=== PATIENT | female | born 1990 | race Caucasian/White ===

== ENCOUNTER 2018-08-27 17:02 | Emergency (ER) | payer BC ==
[2018-08-27 17:10] VITALS: BP 126/65
[2018-08-27] MEDS ORDERED: ONDANSETRON 4 MG TAB.RAPDIS ONE (17:24)
--- NOTE | 2018-08-27 17:36 | ER Document Report ---
ED Medical Screen (RME) - General Chief Complaint: Fall Injury Stated Complaint: FALL/HEAD INJURY Time Seen by Provider: 08/27/18 17:34 Mode of Arrival: Ambulatory Information source: Patient Notes: This is a 28-year-old female with a history of a meningioma, migraine headaches who awoke feeling not well. She states she had some nausea with vomiting and some diarrhea. She did go to work at noon and work till 4 PM. She started to feel worse approximately 4 PM and had a fainting spell. Her brother also works with the patient [employer] and was coming into work and they were talking when the patient fainted. Brother called his sister and the patient did not hit her head. Her predominant complaint at this time is nausea. She was given 8 mg oral Zofran. She does not want any treatment. We will watch her in the triage area for a little bit while they consider being evaluated. TRAVEL OUTSIDE OF THE [place] IN LAST 30 DAYS: No - HPI Onset: Just prior to arrival Onset/Duration: Gradual Quality of pain: No pain Severity: None Pain Level: Denies Associated Symptoms: Diarrhea, Nausea, Vomiting Exacerbated by: Denies Relieved by: Denies Similar symptoms previously: Yes Recently seen / treated by doctor: Yes - Related Data Smoking: Non-smoker Frequency of alcohol use: None Drug Abuse: None Allergies/Adverse Reactions: amoxicillin [From Augmentin] Allergy (Verified 08/27/18 17:04) cefprozil [From Cefzil] Allergy (Verified 08/27/18 17:04) clavulanic acid [From Augmentin] Allergy (Verified 08/27/18 17:04) fentanyl Allergy (Verified 08/27/18 17:04) Past Medical History - General Information source: Patient, Relative - Patient is accompanied by brother - Social History Cigarette use (# per day): No Chew tobacco use (# tins/day): No Frequency of alcohol use: None Drug Abuse: None Lives with: Family Family history: None - Past Medical History Cardiac Medical History: Reports: None Pulmonary Medical History: Reports: None Neurological Medical History: Reports: Hx Migraine, Other - Meningioma Endocrine Medical History: Reports: None Surgical Hx: Negative Review of Systems - Review of Systems Constitutional: denies: Chills, Fever EENT: No symptoms reported Cardiovascular: denies: Chest pain, Palpitations Respiratory: No symptoms reported Gastrointestinal: Diarrhea, Nausea, Vomiting Genitourinary: No symptoms reported Female Genitourinary: No symptoms reported Musculoskeletal: No symptoms reported Skin: No symptoms reported Hematologic/Lymphatic: No symptoms reported Neurological/Psychological: Weakness Physical Exam - Vital signs Vitals: Temp Pulse Resp BP Pulse Ox 98.3 F 112 H 16 126/65 H 99 08/27/18 17:09 08/27/18 17:09 08/27/18 17:08/27/18 17:08/27/18 17:09 Notes: Physical exam: This is a limited exam. Patient essentially does not want full evaluation. GENERAL: HEAD: Atraumatic, normocephalic. EYES: Pupils equal round and reactive to light, extraocular movements intact, sclera anicteric, conjunctiva are normal. ENT: Dry mucous membranes. NECK: Normal range of motion, supple LUNGS: Breath sounds clear to auscultation bilaterally and equal. No wheezes rales or rhonchi. HEART: Regular rate and rhythm without murmurs, rubs or gallops. ABDOMEN: Soft, No tenderness to palpation. No guarding, no rebound. No masses appreciated. EXTREMITIES: Normal range of motion, NEUROLOGICAL: Patient has normal speech, moving all extremities, no gait ataxia PSYCH: Normal mood, normal affect. SKIN: Warm, Dry, normal turgor, no rashes or lesions noted. Course - Re-evaluation Re-evalutation: 08/27/18 17:55 I have allowed patient's friends (support network) come in to speak to the patient in the private triage waiting area. And I have discussed with all of them the options. Patient would rather not go through evaluation in the main ER for any further treatment. She was given some Zofran. She would like to go home and rest. The plan is that she has an appointment with the neurosurgeons at [place] in September. She will rest and return if she has any problems. - Vital Signs Vital signs: Temp Pulse Resp BP Pulse Ox 98.3 F 112 H 16 126/65 H 99 08/27/18 17:09 08/27/18 17:09 08/27/18 17:09 08/27/18 17:08/27/18 17:09 Doctor's Discharge - Discharge Clinical Impression: Vomiting with nausea, Vasovagal episode Condition: Stable Disposition: HOME, SELF-CARE Additional Instructions: Take the Zofran for nausea as needed. Rest, drink fluids, advance diet slowly. Return to the emergency room for worsening vomiting, worsening headache or any concerns you getting worse. Follow-up at [place] as planned. Prescriptions: Ondansetron HCl [Zofran 4 mg Tablet] 1 - 2 tab PO Q4H PRN #10 tablet PRN Reason: Forms: Return to Work
[2018-08-27] MEDS ORDERED: ONDANSETRON ODT 4 MG TAB (6 TAB/ER DISP) PO PRN (17:57)
== END 2018-08-27 18:05 | disposition home or self-care (01) ==
LOC: ER 17:02
DX: S09.90XA Unspecified injury of head, initial encounter (principal); R55 Syncope and collapse; R11.2 Nausea with vomiting, unspecified; R19.7 Diarrhea, unspecified; X58.XXXA Exposure to other specified factors, initial encounter; Z88.0 Allergy status to penicillin
CPT/HCPCS: 99283; S0119

== ENCOUNTER → 2018-10-07 | Outpatient (CLI) | payer BC ==
--- NOTE | 2018-10-07 08:48 | RADIOLOGY REPORT (SQ) ---
EXAM DESCRIPTION: MRI HEAD COMBO COMPLETED DATE/TIME: 10/07/2018 8:17 am REASON FOR STUDY: BENIGN NEOPLASM OF MENINGES (D32.9) D32.9 BENIGN NEOPLASM OF MENINGES, UNSPECIFIE D COMPARISON: None. TECHNIQUE: Multiplanar imaging includes noncontrasted T1, T2, FLAIR, diffusion with ADC map and post gadolinium contrast T1 sequences. Images stored on PACS. CONTRAST TYPE AND DOSE: 10 mL Dotarem. RENAL FUNCTION: Not indicated. ACR Type II contrast agent associated with few, if any, unconfounded cases of NSF LIMITATIONS: None. FINDINGS: ANATOMY: No anomalies. Normal vascular flow voids. Pituitary fossa normal. CSF SPACES: Normal in size and contour. No acute hemorrhage. CEREBRUM: Over the right frontal convexity, along a frontal lobe sulcus there is a mass primarily prabhu k on T2 weighted images measuring 10 mm transverse x 3 mm craniocaudad x 5 mm AP, best shown on axial T2 image 25 and 26, and axial T2 star image 21. There is minimal if any adjacent gliosis in the adj acent frontal cortex. On the post contrasted images, no adjacent brain parenchymal enhancement is pr esent. There are few tiny enhancing cortical draining veins best shown on sagittal reconstruction im age 14 and axial thin section post contrasted images 194-210. This finding could represent a thromb osed vascular malformation. Dystrophic calcification could cause this appearance. Low grade primary cortical tumor such as a ganglioglioma is also possible. The patient was followed with serial neuro imaging in [place] until 2013 by history in the patient's chart at Dr. Lawler's office. We will try to obtain previous x-ray reports/images on this patient. Remainder of the brain parenchyma is otherwise unremarkable. No MR evidence of acute ischemic change , acute intracranial hemorrhage, mass effect, or midline shift. POSTERIOR FOSSA: No signal alteration. No hemorrhage. No edema, masses, or mass effect. Internal summer tory canals, cerebellopontine angles, mastoids normal. No enhancing lesions. No abnormal enhancement post contrast. DIFFUSION IMAGING: Negative for acute or subacute infarction. ORBITS: No masses. Globes normal. PARANASAL SINUSES: No fluid levels. Mucosa normal. OTHER: No other significant finding. IMPRESSION: Abnormality over the right frontal convexity, with either dense calcification or old hem orrhage measuring 10 x 3 x 5 mm in size. Differential includes a thrombosed low-flow vascular malfor mation, dystrophic calcification from old trauma, or possible low-grade primary cortical tumor such a s ganglioglioma. The patient may have prior neuroimaging. If prior MRI reports or imaging become available an addendu m to this report will be generated. EVIDENCE OF ACUTE STROKE: NO. TECHNICAL DOCUMENTATION: JOB ID: [id number] [email or web address] All Rights Reserved Reading location - IP/workstation name: [email or web address]
== END ==
LOC: RAD 07:17
PROVIDERS: ATTEND Physician Assistant
DX: D32.9 Benign neoplasm of meninges, unspecified (principal)
CPT/HCPCS: 70553; A9576